=== PATIENT | male | born 1945 | race Caucasian/White ===

== ENCOUNTER → 2018-07-26 13:48 | Outpatient (BNVA) | payer MEDICARE, SELFPAY | PROVIDERS: PCP Internal Medicine; Referring Provider Internal Medicine; Visit Provider Physical Therapy Assistant | DX: Z12.11 Encounter for screening for malignant neoplasm of colon (principal) ==

== ENCOUNTER 2018-08-02 09:03 | Day surgery (SDC) | payer MEDICARE, SELFPAY ==
[2018-08-02 09:24] VITALS: BP 137/87; PULSE 70; RESP 18; TEMP 36; O2SAT 98
[2018-08-02] MEDS: Lactated Ringers 1,000 ML 80 ML IV (09:53)
--- NOTE | 2018-08-02 11:51 | BOWEL_PTH ---
PATIENT: Cem Cornejo LOC: [facility] U#:[id number] AGE/SX: 72/M ROOM: RE08/02/[address]: Sandi Viveros : 1945 BED: DIS: 08/02/2018 SPEC #: [id number] RECD: 08/02/18 12:51 STATUS: FISH RERodriguez #: [id number] DIANNA: 08/02/18 11:[address]: Sandi Viveros DEPT: Surgical Specimen RECD BY: Vanita Michael ENTERED: 08/02/18 12:55 SP TYPE: Bowel OTHR DR: Dulce Lyon MD Tissues: 1 - BIOPSY BOWEL 2 - BIOPSY BOWEL 3 - BIOPSY BOWEL Procedures: GROSS AND MICRO LEVEL 4 Comments: [id number]
--- NOTE | 2018-08-02 12:25 | W.PM.DSUDISC ---
Discharge Plan Disposition Patient Disposition: HOME Condition: Good Discharge Details Reason For Visit: colons scope Attending Provider: Sandi Viveros Primary Care Provider: Dulce Lyon Home Meds and New Rx's Prescriptions: Discontinued polyethylene glycol 3350 17 gram/dose powder 238 g PO ONCE Qty: 238 RF: 0 bisacodyl [Dulcolax (bisacodyl)] 5 mg tablet,delayed release (DR/EC) 5 mg PO ONCE Qty: 4 RF: 0 aspirin 325 mg tablet 325 mg PO .every other day RF: 0 Discharge Instructions Instructions: High Fiber Diet (GEN) Additional Instructions: Findings: mult polyps- will send a letter in 2-3 wks as to when to repeat scope -No asa/nsaid's x 2 wks Follow up:repeat scope 1-3 yrs depending on path Please call if you develop: fevers >101.5 Nausea or Vomiting Abdominal pain that is not transient DAY SURGERY UNIT POST COLONOSCOPY INSTRUCTIONS 1. Because there will be medication in your system for the next 24 hours, you may feel a little sleepy. Your coordination will be affected. Therefore: a. Do not drive or operate dangerous equipment for 24 hours. b. Do not drink alcohol beverages for 24 hours (not even beer). c. Plan to go home and rest for the day. 2. Generally there are no restrictions on your activity after a day or so has gone by, but you may feel a bit fatigued for a few days. 3 After you arrive home you may have a light meal and return to a normal diet as you can tolerate it without feeling sick to your stomach. 4. After surgery, you may feel pain or discomfort. This should be only transient, but if it persists please contact your doctor. 5. If there are any questions regarding the findings of your procedure, please feel free to contact your doctor. 6. If you are unable to contact your doctor with a problem, contact the hospital at [phone]. 7. Continue all your regular medications unless directed otherwise. I understand the above instructions and have no questions. Signature of Patient or Responsible Adult Escort Date/Time Name of Responsible Adult Escort Signature of Nurse Date/Time Activity:: no heavy lifting or strenuous acitivty x 24 hrs Diet:: sm lt meals today Discharge Orders Discharge Orders: Discharge Order (Routine); Ordered 08/02/18 Ordered By: Sandi Viveros DS: Diagnosis Discharge Diagnosis (1) Adenomatous polyps: Status: Acute
--- NOTE | 2018-08-02 12:29 | W.COLOREPORT ---
Date of service: 08/02/18 Time of Service: 12:29 Colonoscopy Report Date of procedure: 08/02/18 Pre-op diagnosis general: screen Post-op diagnosis procedure note: other Procedure: CE Surgeon: Sandi Viveros Anesthesia proc note operative: GETA Estimated blood loss (mL): 4 Pathology: other Complications: None Disposition: PACU Prep: Miralax Retraction Time: 20 mins Procedure Description: After informed consent was obtained the patient was taken to the procedure room and placed in a left decubitous position. Monitors were applied and a time out was done. The patients name, date of , procedure, allergies to medications and metal in their body was reviewed. The patient was then sedated. Once sedated and comfortable a rectal exam was done. External exam was grade II hemorrhoids Internal exam revealed a normal sphincter tone and no palpable masses. The prostate nl. The scope was then introduced and retrofelexed: hyypertrophied papilla. The scope was then advanced to the cecum without difficulty. The TI and appendiceal orifice were identified. The prep was good. The scope was then slowly retracted over 20 minutes back into the rectum. Polyps were removed at: cecum- hot biter and clip applies. transverse/50cm- cold biter. 40cm/descending- hot biter. The scope was removed and the patient was woken up and taken back to Same day surgery in stable condition. The patient tolerated the procedure well and there were no immediate complications. Follow up: The patient should follow up in 1-3 years - path pd unless they develop changes in bowel habits or other new gastrointestinal complaints.
[2018-08-02 13:00] VITALS: BP 124/69; PULSE 60; RESP 16; TEMP 35.3; O2SAT 98
== END 2018-08-02 13:20 | disposition home or self-care (01) ==
PROVIDERS: PCP Internal Medicine; Visit Provider Surgery
PROC: 0DJD8ZZ Inspection of Lower Intestinal Tract, Via Natural or Artificial Opening Endoscopic (ICD-10-PCS; CPT 45378; principal; 2018-08-02 09:45)
DX: Z12.11 Encounter for screening for malignant neoplasm of colon (principal); D12.0 Benign neoplasm of cecum; D12.3 Benign neoplasm of transverse colon; K64.4 Residual hemorrhoidal skin tags
CPT/HCPCS: 45384; 45380; 88305

== ENCOUNTER 2019-11-11 04:41 | Outpatient (CLI) | payer MEDICARE, SELFPAY ==
[2019-11-11 14:33] LABS: BUN 12 mg/dL (7-18); CREATININE 0.83 mg/dL (0.70-1.30); Calcium 8.8 mg/dL (8.5-10.1); Calculated LDL 127 mg/dL (<100); Chloride 104 mmol/L (98-107); Cholesterol 195 mg/dL (<200); Glucose 99 mg/dL (74-106); HDL Cholesterol 42 mg/dL (40-60); Potassium 3.9 mmol/L (3.5-5.1); Sodium 141 mmol/L (136-145); Triglyceride 134 mg/dL (<150)
== END 2019-11-11 05:01 ==
PROVIDERS: PCP Internal Medicine; Visit Provider Internal Medicine
DX: R03.0 Elevated blood-pressure reading, without diagnosis of hypertension (principal); Z13.220 Encounter for screening for lipoid disorders
CPT/HCPCS: 36415; 80048; 80061